=== PATIENT | female | born 1945 | race Caucasian/White ===

== ENCOUNTER → 2021-04-14 | Outpatient (POV) | payer MEDICARE, MEDICAID ==
[~2021-04-14] MED LIST: ABIL1TAB11 PO; ATOR40TA75 PO; ECOT81TA5 PO; FOLI800C PO; GABA-282 PO; LISI10TA22 PO; PRIM250T8 PO; PROP40TA62 PO; REME15TA2 PO; STIO1AER IN; VALA1TAB5 PO; VENTAER INH; ZOLO100T PO
--- NOTE | 2021-04-16 13:26 | IRCOV ---
[facility] IR Consult Office Visit IR Consult Office Visit DATE: Apr 14, 2021 Patient requested a telephone consultation as she does not want to travel to site. I spent 15 minutes reviewing patient's records and talking to the patient on the phone. REASON FOR CONSULTATION/CHIEF COMPLAINT: Port removal. HISTORY OF PRESENT ILLNESS: 75-year-old female with history of lung cancer, had a port placed 7 years ago at outside hospital in [place]. She is referred to me because she would like her port removed. Patient reports she's completed all therapies. Her last chemotherapy was January 2020. She does get regular flushes to the port. She follows with Dr. Desai and he is aware she would like the port removed. ALLERGIES: Please see below. HOME MEDICATIONS: Please see below. PAST MEDICAL HISTORY: Severe COPD Benign tremors Lung cancer PAST SURGICAL HISTORY: Left chest port placed at outside hospital FAMILY HISTORY: Noncontributory. SOCIAL HISTORY: Current smoker. Denies alcohol or drugs. REVIEW OF SYSTEMS: Otherwise negative. PHYSICAL EXAMINATION: No video on patient side. LABORATORY DATA: 02/04/2021 hemoglobin 12.8 hematocrit 43.6 WBC 5.3 platelets 117 sodium 140 potassium 3.6 BUN 10 creatinine 0.48 GFR greater than 60 Imaging: I personally reviewed the CT chest without contrast performed 02/17/2021. There is a left-sided subclavian chest port in place. ASSESSMENT/PLAN: 75-year-old female with history of lung cancer status post port placement 7 years ago at outside hospital. Patient would like her port removed. We discussed the risks and benefits of the procedure and patient would like to proceed. We will schedule the patient for port removal. I spent 15 minutes reviewing patient's records, imaging and in consultation with the patient. Thank you for this referral. Cc Dr. Desai Allergies Coded Allergies: No Known Allergies (Unverified , 02/04/21) Home Medications Scheduled Aripiprazole (Abilify), 1 TAB PO DAILY, (Reported) Aspirin (Ecotrin), 81 MG PO DAILY, (Reported) Atorvastatin Calcium (Atorvastatin Calcium), 1 TAB PO DAILY, (Reported) Folic Acid (Folic Acid), 800 MG PO DAILY, (Reported) Gabapentin (Gabapentin), 300 MG PO BID, (Reported) Lisinopril (Lisinopril), 2 TAB PO DAILY, (Reported) Mirtazapine (Remeron), 15 MG PO DAILY, (Reported) Primidone (Primidone), 250 MG PO BID, (Reported) Propranolol HCl (Propranolol HCl), 1 TAB PO PRN, (Reported) Sertraline Hcl (Zoloft), 150 MG PO DAILY, (Reported) Tiotropium Br/Olodaterol HCl (Stiolto Respimat Inhal Painter), 1 AER IN BID, (Reported) Valacyclovir HCl (Valacyclovir), 1 TAB PO DAILY, (Reported) Scheduled PRN Albuterol Sulfate (Ventolin Hfa), 2 PUFF INH Q4-6HP PRN for wheezing, (Reported) ANGIE BERGERON MD Apr 16, 2021 13:26
== END ==
LOC: M TMIRPOV 15:02
PROVIDERS: ATTEND Radiology Diagnostic Radiology
DX: Z09 Encounter for follow-up examination after completed treatment for conditions other than malignant neoplasm (principal); Z45.2 Encounter for adjustment and management of vascular access device; Z85.118 Personal history of other malignant neoplasm of bronchus and lung; F17.210 Nicotine dependence, cigarettes, uncomplicated; J44.9 Chronic obstructive pulmonary disease, unspecified

== ENCOUNTER → 2021-05-20 | Outpatient (CLI) | payer MEDICARE, MEDICAID ==
[~2021-05-20] MED LIST changes: +LIDOCAINE 1% MDV 20ML VIAL As Ordered ONE; +MIDAZOLAM INJ 2MG/2ML VIAL (J2250 PER 1MG) As Ordered ONE; +NALOXONE INJ 0.4MG/1ML VIAL (J2310 PER 1MG) As Ordered ONE; +NS 1,000 ML IV SCH; +ceFAZolin 2 GM/D5W 50 ML IV BAG (J0690 PER 500MG) As Ordered ONE; +ceFAZolin SOD 2 GM in IV 1 EA IV ONE; +diphenhydrAMINE 50MG/ML VIAL (J1200) As Ordered ONE; +fentaNYL 100 MCG/2 ML INJECTION (J3010) As Ordered ONE
[2021-05-20 08:50] LABS: HEMATOCRIT 41.4 % (36.0-47.0); MEAN CORPUSCULAR HEMOGLOBIN 30.4 pg (27.0-33.0); MEAN CORPUSCULAR HGB CONC 31.4 g/dl (32.0-36.5); PLATELET COUNT, AUTOMATED 140 10^3/uL (150-450); RED BLOOD COUNT 4.27 10^6/uL (4.00-5.40); WHITE BLOOD COUNT 4.9 10^3/uL (4.0-10.0)
--- NOTE | 2021-05-20 09:33 | IRHP ---
[facility] IR Pre-Procedure H & P General Date of Service: May 20, 2021 Procedure: Same Day Surgery Interval History and Physical I have seen the patient and reviewed last H & P performed within 30 days. There is no significant interval change. History of Present Illness Chief Complaint The patient is a 75-year-old female admitted with a reason for visit of Lung Ca. PRE-PROCEDURE DIAGNOSIS: Left subclavian port placed at outside hospital in [place]. Patient would like her port removed. HEART: Normal rate. LUNGS: Normal breathing at rest. ASA Classification ASA Classification: II-Mild systemic disease Mallampati Score: II NPO: Yes Problems with prior sedation: No Obstructive Sleep Apnea: No Plan moderate sedation Allergies Coded Allergies: No Known Allergies (Unverified , 02/04/21) Home Medications Scheduled Aripiprazole (Abilify), 1 TAB PO DAILY, (Reported) Aspirin (Ecotrin), 81 MG PO DAILY, (Reported) Atorvastatin Calcium (Atorvastatin Calcium), 1 TAB PO DAILY, (Reported) Folic Acid (Folic Acid), 800 MG PO DAILY, (Reported) Gabapentin (Gabapentin), 300 MG PO BID, (Reported) Lisinopril (Lisinopril), 2 TAB PO DAILY, (Reported) Mirtazapine (Remeron), 15 MG PO DAILY, (Reported) Primidone (Primidone), 250 MG PO BID, (Reported) Propranolol HCl (Propranolol HCl), 1 TAB PO PRN, (Reported) Sertraline Hcl (Zoloft), 150 MG PO DAILY, (Reported) Tiotropium Br/Olodaterol HCl (Stiolto Respimat Inhal [place]on), 1 AER IN BID, (Reported) Valacyclovir HCl (Valacyclovir), 1 TAB PO DAILY, (Reported) Scheduled PRN Albuterol Sulfate (Ventolin Hfa), 2 PUFF INH Q4-6HP PRN for wheezing, (Reported) VS, I&O, 24H, Fishbone Vital Signs/I&O Vital Signs Date Time Temp Pulse Resp B/P (MAP) Pulse Ox O2 Delivery O2 Flow Rate FiO2 05/20/21 09:20 76 16 96 Nasal Cannula 4.0 05/20/21 08:10 97.8 Laboratory Data 24H LABS Laboratory Tests 2 05/20/21 08:30: Nucleated Red Blood Cells % (auto) 0.0 CBC/BMP Laboratory Tests 05/20/21 08:30 ANGIE BERGERON MD May 20, 2021 09:33
[2021-05-20 11:32] VITALS: BP 127/59
--- NOTE | 2021-05-25 12:04 | IRPON ---
IR Postoperative Note Date Of Procedure: May 20, 2021 Time Of Procedure: 16:00 IR Postoperative Note IR Port Removal / Explant. IR Moderate sedation. Clinical Information:Lung cancer. Treatment complete. Left subclavian port placed at outside hospital in [place]. Patient would like her left-sided port removed. Physician: Dr. Worley Procedure: The patient was advised of the benefits, risks, and alternatives of the procedure and informed consent was obtained. A time out was performed with verification of the patient's name, MRN, site of procedure, and type of procedure to be performed. The patient was positioned in the supine position on the angiographic table. The site was prepped and draped in the usual sterile fashion. Moderate sedation was performed by the physician including the presence of an independent trained RN who assisted in monitoring the patient's level of consciousness and physiological status. Following the administration of fentanyl and Versed the physician spent 30 minutes of continuous [id number] time with the patient. A logistics planner radiograph reveals a left subclavian port. The soft tissues overlying the port were anesthetized with lidocaine. An incision was made over the port using a 15 blade scalpel in the location of the prior incision.Blunt dissection was performed along the catheter tract with continuous retraction, to try to remove the catheter. This was not possible. Therefore, the incision was closed with interrupted deep 3-0 Vicryl sutures and subcuticular Monocryl suture followed by glue and steri-strips. The site was covered with a sterile dressing. The patient tolerated the procedure well and was returned to the PRU in stable condition. EBL:Less than 5 mL Complications:None. Conclusions: 1. Unsuccessful explant of a left subclavian port placed at outside hospital. 2. Patient will be referred to Gen. surgery for port removal in the OR. Thank you for this referral. Cc ANGIE Sherwood MD May 25, 2021 12:04
== END ==
LOC: M IRPRO 08:02
PROVIDERS: ATTEND Radiology Diagnostic Radiology
DX: Z45.2 Encounter for adjustment and management of vascular access device (principal); C34.90 Malignant neoplasm of unspecified part of unspecified bronchus or lung; Z79.82 Long term (current) use of aspirin; Z79.899 Other long term (current) drug therapy
CPT/HCPCS: 36415; 36590; 85027; 99152; 99153; J0690; J1200; J1644; J2250; J2310; J3010

== ENCOUNTER 2022-08-04 06:26 | Day surgery (SDC) | payer MEDICAID, MEDICARE ==
[~2022-08-04] VITALS: Ht 175.3 cm; Wt 109.8 kg
[~2022-08-04 06:26] MED LIST changes: +BSS IRRIG/VANCO(10MG)/TOBRA(5MG)/EPINEPH(1:1000-0.5CC)500ML BAG-ORONLY IR ONE; +BUDE10.2 INH; +CYCLOPENTOLATE 1% OPHTH SOLN 2 ML BTL OD SCH; -LIDOCAINE 1% MDV 20ML VIAL As Ordered ONE; +LIDOCAINE 3.5 % 1ML OPHTH TOPICAL GEL OU ONE; -MIDAZOLAM INJ 2MG/2ML VIAL (J2250 PER 1MG) As Ordered ONE; -NALOXONE INJ 0.4MG/1ML VIAL (J2310 PER 1MG) As Ordered ONE; -NS 1,000 ML IV SCH; +OFLOXACIN 0.3 % (OCUFLOX) OPTH SOL 5ML OD ONE; +PHENYLEPHRINE 2.5% OPHTH SOL 2ML OD SCH; +PHENYLEPHRINE HCL 10 % OPHTH. SOL 5ML OD PRN; +PRAM0.5T4 PO; +SPIR1CAP INH; +TROPICAMIDE 1% OPHTH SOLN 2ML OD SCH; -ceFAZolin 2 GM/D5W 50 ML IV BAG (J0690 PER 500MG) As Ordered ONE; -ceFAZolin SOD 2 GM in IV 1 EA IV ONE; -diphenhydrAMINE 50MG/ML VIAL (J1200) As Ordered ONE; -fentaNYL 100 MCG/2 ML INJECTION (J3010) As Ordered ONE
[2022-08-04] MEDS ORDERED: CEFUROXIME 1MG/0.1ML INTRACAMERAL INJ As Ordered ONE (06:41)
[2022-08-04] MEDS ORDERED: LIDOCAINE 1% SDV 5ML VIAL As Ordered ONE (06:41)
[2022-08-04] MEDS ORDERED: fentaNYL 100 MCG/2 ML INJECTION As Ordered ONE (07:20)
[2022-08-04] MEDS ORDERED: MIDAZOLAM INJ 2MG/2ML VIAL (J2250 PER 1MG) As Ordered ONE (07:20)
[2022-08-04 09:50] VITALS: BP 132/69
== END 2022-08-04 10:15 | disposition home or self-care (01) ==
LOC: M SDC 06:26
PROVIDERS: ATTEND Ophthalmology
DX: H25.9 Unspecified age-related cataract (principal)
CPT/HCPCS: 66984; J0697; J2250; J3010; V2632

== ENCOUNTER 2022-09-06 06:18 | Day surgery (SDC) | payer MEDICARE ==
[~2022-09-06] VITALS: Ht 172.7 cm; Wt 104.3 kg
[~2022-09-06 06:18] MED LIST changes: +ARIP1TAB6 PO; -CYCLOPENTOLATE 1% OPHTH SOLN 2 ML BTL OD SCH; +CYCLOPENTOLATE 1% OPHTH SOLN 2 ML BTL OS SCH; -OFLOXACIN 0.3 % (OCUFLOX) OPTH SOL 5ML OD ONE; +OFLOXACIN 0.3 % (OCUFLOX) OPTH SOL 5ML OS ONE; -PHENYLEPHRINE 2.5% OPHTH SOL 2ML OD SCH; +PHENYLEPHRINE 2.5% OPHTH SOL 2ML OS SCH; -PHENYLEPHRINE HCL 10 % OPHTH. SOL 5ML OD PRN; +PHENYLEPHRINE HCL 10 % OPHTH. SOL 5ML OS PRN; +SYMB16INH INH; -TROPICAMIDE 1% OPHTH SOLN 2ML OD SCH; +TROPICAMIDE 1% OPHTH SOLN 2ML OS SCH
[2022-09-06] MEDS ORDERED: LIDOCAINE 1% SDV 5ML VIAL As Ordered ONE (06:29)
[2022-09-06] MEDS ORDERED: CEFUROXIME 1MG/0.1ML INTRACAMERAL INJ As Ordered ONE (06:30)
[2022-09-06] MEDS ORDERED: MIDAZOLAM INJ 2MG/2ML VIAL (J2250 PER 1MG) As Ordered ONE (07:16)
[2022-09-06] MEDS ORDERED: fentaNYL 100 MCG/2 ML INJECTION As Ordered ONE (07:16)
[2022-09-06 08:45] VITALS: BP 136/63
== END 2022-09-06 08:45 | disposition home or self-care (01) ==
LOC: M SDC 06:18
PROVIDERS: ATTEND Ophthalmology
DX: H25.12 Age-related nuclear cataract, left eye (principal); I10 Essential (primary) hypertension; E78.5 Hyperlipidemia, unspecified; J44.9 Chronic obstructive pulmonary disease, unspecified; Z85.118 Personal history of other malignant neoplasm of bronchus and lung; Z87.891 Personal history of nicotine dependence; F32.A Depression, unspecified; G47.33 Obstructive sleep apnea (adult) (pediatric); Z92.21 Personal history of antineoplastic chemotherapy; Z79.899 Other long term (current) drug therapy; Z79.51 Long term (current) use of inhaled steroids
CPT/HCPCS: 66984; J0697; J2250; J3010; V2632